=== PATIENT | male | born 1950 | race Caucasian/White ===

== ENCOUNTER 2016-09-18 11:31 | Inpatient (IN) | payer OTHER, BC ==
[~2016-09-18] VITALS: Ht 165.1 cm; Wt 72.0 kg
[~2016-09-18 11:31] MED LIST: ASPIRIN81 M2 PO; COMBIVENT RESPIM4 GM IH; COQ-10100 MG PO; FISH OIL 1,2001 EAC4 PO; FLAX OIL1000 MG PO; IMDUR30 MG PO; LIPITOR80 MG PO; MULTIPLE VITAM1 EACH PO; PROTONIX40 MG PO; SUPER B-50 COM1 EACH PO; TOPROL XL25 MG PO
[2016-11-29 06:53] VITALS: BP 113/61
[2016-11-29 07:11] LABS: MCH 28.6 PG (29.0-34.0); MCHC 34.4 G/DL (30.0-36.0); MCV 82.9 FL (86-99); MEAN PLAT.VOLUME 12.2 uM^3 (9.0-12.4); PLATELET COUNT 438 K/uL (156-360); RBC DIS.WIDTH-CV 18.4 % (11.8-14.6); RBC DIS.WIDTH-SD 55.9 % (39-53); RED BLOOD COUNT 4.34 M/uL (4.00-5.50); WHITE BLOOD COUNT 10.3 K/uL (4.1-10.2)
[2016-11-29 07:27] LABS: ANION GAP 7 MEQ/L (2-14); CHLORIDE 107 MEQ/L (99-109); POTASSIUM 3.9 MEQ/L (3.7-5.4); SAMPLE HEMOLYSIS CHECK 0; SAMPLE ICTERIC CHECK 0; SAMPLE LIPEMIA CHECK 0; SODIUM 140 MEQ/L (136-147)
[2016-11-29 07:32] LABS: GFR ESTIMATE (CALCULATED) > 59 mL/min/; GLUCOSE 93 mg/dL (70-99); UREA NITROGEN (BUN) 20 mg/dL (9-23)
[2016-11-29 15:47] VITALS: BP 131/62
[2016-11-29 19:58] VITALS: BP 117/66
[2016-11-29 23:45] VITALS: BP 145/70
[2016-11-30 05:23] VITALS: BP 98/54
[2016-11-30 08:30] VITALS: BP 102/56
[2016-11-30 11:30] VITALS: BP 102/56; BP 108/58
== END 2016-11-30 15:18 | disposition home or self-care (01) | DRG 460 ==
LOC: 2SOUTH → 3EAST 11-29 06:34 → 2SOUTH 11-29 06:34 → 3EAST 11-29 15:32
PROVIDERS: Neurological Surgery
DX: M43.17 Spondylolisthesis, lumbosacral region (principal); M48.06 Spinal stenosis, lumbar region; M54.16 Radiculopathy, lumbar region; H57.13 Ocular pain, bilateral; H05.223 Edema of bilateral orbit; I10 Essential (primary) hypertension; K21.9 Gastro-esophageal reflux disease without esophagitis; I25.2 Old myocardial infarction; Z95.5 Presence of coronary angioplasty implant and graft; Z87.891 Personal history of nicotine dependence
CPT/HCPCS: 71010; 72100; 76000; 80048; 85027; 86850; 86900; 86901; 94799; C1821; J0330; J0690; J2405; J3010; J3370; J3480; S0020